=== PATIENT | female | born 1955 ===

== ENCOUNTER 2020-12-27 08:45 | Inpatient (IN) | payer OTHER ==
[~2020-12-27] VITALS: Ht 162.6 cm; Wt 88.0 kg
[2020-12-27] MEDS ORDERED: CRESTOR20 MG PO (11:14)
[2020-12-27] MEDS ORDERED: SYNTHROID100 MCG PO (11:14)
[2020-12-27] MEDS ORDERED: FORTAMET500 MG PO (11:14)
== END 2021-01-04 18:34 | disposition home or self-care (01) | DRG 743 ==
LOC: SURH 01-02 08:45 → OB/GYN 01-02 10:53 → EDSEX 01-02 10:53 → O/R 01-02 10:53 → OB/GYN 01-02 18:25
PROVIDERS: ADMIT Obstetrics & Gynecology; ATTEND Obstetrics & Gynecology
PROC: 0UT20ZZ Resection of Bilateral Ovaries, Open Approach (ICD-10-PCS; 2021-01-02)
PROC: 0UT70ZZ Resection of Bilateral Fallopian Tubes, Open Approach (ICD-10-PCS; 2021-01-02)
PROC: 0UT90ZZ Resection of Uterus, Open Approach (ICD-10-PCS; principal; 2021-01-02 14:00)
DX: N72 Inflammatory disease of cervix uteri (principal); D25.0 Submucous leiomyoma of uterus; D25.1 Intramural leiomyoma of uterus; D25.2 Subserosal leiomyoma of uterus; N83.292 Other ovarian cyst, left side; N83.291 Other ovarian cyst, right side; N83.8 Other noninflammatory disorders of ovary, fallopian tube and broad ligament; N84.0 Polyp of corpus uteri